=== PATIENT | male | born 1960 | race Caucasian/White ===

== ENCOUNTER 2016-07-16 10:38 | Observation (INO) | payer OTHER | END 2016-07-19 10:55 | disposition other institution (70) | LOC: ER 10:38 → MS 12:48 | PROVIDERS: ADMIT Family Medicine | DX: L03.116 Cellulitis of left lower limb (principal); M86.8X6 Other osteomyelitis, lower leg; S90.822A Blister (nonthermal), left foot, initial encounter; T75.4XXS Electrocution, sequela; E11.9 Type 2 diabetes mellitus without complications; F32.9 Major depressive disorder, single episode, unspecified; D64.9 Anemia, unspecified; R63.4 Abnormal weight loss; I73.9 Peripheral vascular disease, unspecified; Z90.49 Acquired absence of other specified parts of digestive tract; Z98.890 Other specified postprocedural states; Z79.899 Other long term (current) drug therapy; Z79.84 Long term (current) use of oral hypoglycemic drugs; Z68.22 Body mass index [BMI] 22.0-22.9, adult; Z88.2 Allergy status to sulfonamides | CPT/HCPCS: 36415; 71250; 73630; 80048; 80053; 80061; 80202; 82962; 83036; 83605; 85025; 85651; 87040; 96365; 96366; 96367; 96372; 96375; 96376; 99070; 99284-25; G0378; J1170; J3370; J7050 ==

== ENCOUNTER 2016-07-16 10:38 | Inpatient (IN) | payer OTHER ==
[~2016-07-16] VITALS: Ht 182.9 cm; Wt 73.0 kg
[2016-07-16 11:04] LABS: BASO % 0.1 % (0.2-1.2); GRAN # 10.9 10_X3_uL (1.8-5.4); GRAN % 86.9 % (34.0-67.9); HEMATOCRIT 40.7 % (40-51); HEMOGLOBIN 13.8 g/dL (13.7-17.5); LYMPH # 0.8 10_X3_uL (1.3-3.6); MEAN CORPUSCULAR HEMOGLOBIN 29.1 pg (27.0-33.0); MEAN CORPUSCULAR HGB CONC 33.9 g/dL (32.0-36.0); MEAN CORPUSCULAR VOLUME 85.7 fL (79-92); MEAN PLATELET VOLUME 10.1 fl (7.5-11.5); MONO # 0.9 10_X3_uL (0.3-0.8); PLATELET COUNT 172 x10_3/uL (163-337); RED BLOOD COUNT 4.75 x10_6/uL (4.6-6.1); RED CELL DISTRIBUTION WIDTH 13.2 % (11.6-14.4); WHITE BLOOD COUNT 12.6 x10_3/uL (4.2-9.1)
[2016-07-16 11:14] LABS: CALCIUM 8.5 mg/dL (8.7-10.7); CARBON DIOXIDE 26 mmol/L (21-32); CREATININE 1.2 mg/dL (0.6-1.3); GLUCOSE,RANDOM 233 mg/dL (70-99); POTASSIUM 4.4 mmol/L (3.5-5.1); SODIUM 134 mmol/L (136-145)
[2016-07-16 11:18] LABS: BLOOD UREA NITROGEN 21 mg/dL (7-18)
[2016-07-16 12:37] LABS: ERYTHROCYTE SEDIMENTATION RATE 8 mm/hr (0-10)
[2016-07-17 07:09] LABS: AHDL CHOLESTEROL 23 mg/dL (>40); ALBUMIN 3.7 gm/dL (3.4-5.0); ALKALINE PHOSPHATASE 118 U/L (50-136); ALT/SGPT 12 U/L (7.53-40.17); AST/SGOT 11 U/L (6.66-35.34); BILIRUBIN,TOTAL 0.69 mg/dL (0.0-1.0); BLOOD UREA NITROGEN 16 mg/dL (7-18); CALCIUM 8.6 mg/dL (8.7-10.7); CARBON DIOXIDE 29 mmol/L (21-32); CHOLESTEROL 117 mg/dL (0-200); CREATININE 1.1 mg/dL (0.6-1.3); GLUCOSE,RANDOM 127 mg/dL (70-99); LDL CHOLESTEROL 56 mg/dL (0-99); POTASSIUM 4.7 mmol/L (3.5-5.1); SODIUM 141 mmol/L (136-145); TOTAL PROTEIN 6.4 gm/dL (6.4-8.2); TRIGLYCERIDES 143 mg/dL (30-200)
[2016-07-18 06:57] LABS: HEMATOCRIT 38.4 % (40-51); MEAN CORPUSCULAR HEMOGLOBIN 28.9 pg (27.0-33.0); MEAN CORPUSCULAR HGB CONC 33.9 g/dL (32.0-36.0); MEAN CORPUSCULAR VOLUME 85.3 fL (79-92); MEAN PLATELET VOLUME 10.3 fl (7.5-11.5); RED BLOOD COUNT 4.5 x10_6/uL (4.6-6.1); RED CELL DISTRIBUTION WIDTH 12.6 % (11.6-14.4); WHITE BLOOD COUNT 7.7 x10_3/uL (4.2-9.1)
[2016-07-18 07:11] LABS: BLOOD UREA NITROGEN 16 mg/dL (7-18); CALCIUM 8.6 mg/dL (8.7-10.7); CARBON DIOXIDE 26 mmol/L (21-32); CREATININE 0.9 mg/dL (0.6-1.3); GLUCOSE,RANDOM 120 mg/dL (70-99); POTASSIUM 4.4 mmol/L (3.5-5.1); SODIUM 142 mmol/L (136-145)
[2016-07-19 10:57] LABS: BASO % 0.4 % (0.2-1.2); EOS # 0.1 10_X3_uL (0.0-0.5); EOS % 1.6 % (0.8-7.0); GRAN # 3.8 10_X3_uL (1.8-5.4); GRAN % 66.3 % (34.0-67.9); HEMATOCRIT 39.6 % (40-51); HEMOGLOBIN 13.4 g/dL (13.7-17.5); LYMPH # 1.1 10_X3_uL (1.3-3.6); MEAN CORPUSCULAR HGB CONC 33.8 g/dL (32.0-36.0); MEAN CORPUSCULAR VOLUME 85.7 fL (79-92); MEAN PLATELET VOLUME 10.4 fl (7.5-11.5); MONO # 0.7 10_X3_uL (0.3-0.8); MONO % 11.7 % (5.3-12.2); PLATELET COUNT 237 x10_3/uL (163-337); RED BLOOD COUNT 4.62 x10_6/uL (4.6-6.1); RED CELL DISTRIBUTION WIDTH 12.6 % (11.6-14.4); WHITE BLOOD COUNT 5.7 x10_3/uL (4.2-9.1)
[2016-07-19 11:13] LABS: ALBUMIN 3.3 gm/dL (3.4-5.0); ALKALINE PHOSPHATASE 242 U/L (50-136); ALT/SGPT 27 U/L (7.53-40.17); AST/SGOT 22 U/L (6.66-35.34); BILIRUBIN,TOTAL 0.53 mg/dL (0.0-1.0); BLOOD UREA NITROGEN 19 mg/dL (7-18); CALCIUM 8.9 mg/dL (8.7-10.7); CARBON DIOXIDE 28 mmol/L (21-32); CREATININE 0.9 mg/dL (0.6-1.3); GLUCOSE,RANDOM 155 mg/dL (70-99); POTASSIUM 4.1 mmol/L (3.5-5.1); SODIUM 142 mmol/L (136-145); TOTAL PROTEIN 6.4 gm/dL (6.4-8.2)
[2016-07-20 06:41] LABS: HEMATOCRIT 39.1 % (40-51); HEMOGLOBIN 13.2 g/dL (13.7-17.5); MEAN CORPUSCULAR HEMOGLOBIN 28.9 pg (27.0-33.0); MEAN CORPUSCULAR HGB CONC 33.8 g/dL (32.0-36.0); MEAN CORPUSCULAR VOLUME 85.6 fL (79-92); MEAN PLATELET VOLUME 10.1 fl (7.5-11.5); RED BLOOD COUNT 4.57 x10_6/uL (4.6-6.1); RED CELL DISTRIBUTION WIDTH 12.5 % (11.6-14.4); WHITE BLOOD COUNT 6.7 x10_3/uL (4.2-9.1)
[2016-07-20 07:02] LABS: BLOOD UREA NITROGEN 18 mg/dL (7-18); CALCIUM 8.7 mg/dL (8.7-10.7); CARBON DIOXIDE 28 mmol/L (21-32); CREATININE 0.9 mg/dL (0.6-1.3); GLUCOSE,RANDOM 136 mg/dL (70-99); POTASSIUM 4.3 mmol/L (3.5-5.1); SERUM IRON 32 ug/dl (65-175); SODIUM 141 mmol/L (136-145); UIBC 168 ug/dL (135-370)
[2016-07-20 07:51] LABS: FOLATE 11.2 ng/mL (3.17-24.25)
== END 2016-07-20 12:00 | disposition home or self-care (01) | DRG 603 ==
LOC: ER 10:38 → MS 12:48 → UNDODEPER 07-19 13:32 → MS 07-20 12:00
PROVIDERS: Internal Medicine; ADMIT Family Medicine
DX: L03.116 Cellulitis of left lower limb (principal); M86.8X6 Other osteomyelitis, lower leg; S90.822A Blister (nonthermal), left foot, initial encounter; T75.4XXS Electrocution, sequela; E11.9 Type 2 diabetes mellitus without complications; Z90.49 Acquired absence of other specified parts of digestive tract; Z98.890 Other specified postprocedural states; Z79.899 Other long term (current) drug therapy; Z79.84 Long term (current) use of oral hypoglycemic drugs; F32.9 Major depressive disorder, single episode, unspecified; D64.9 Anemia, unspecified; R63.4 Abnormal weight loss; Z68.22 Body mass index [BMI] 22.0-22.9, adult; Z88.2 Allergy status to sulfonamides; I73.9 Peripheral vascular disease, unspecified
CPT/HCPCS: 36415; 71250; 73630; 78315; 80048; 80053; 80061; 80202; 82607; 82746; 82962; 83036; 83540; 83550; 83605; 85025; 85651; 87040; 93971; 96365; 96366; 96375; 96376; 99070; 99284-25; A9503; G0328-QW; J1170; J3370; J7050

== ENCOUNTER → 2016-08-18 | Day surgery (SDC) | payer OTHER ==
[~2016-08-18] VITALS: Ht 182.9 cm; Wt 74.8 kg
== END ==
LOC: OPS 09:19
PROC: 0DB48ZX Excision of Esophagogastric Junction, Via Natural or Artificial Opening Endoscopic, Diagnostic (ICD-10-PCS; principal; 2016-08-18)
PROC: 0DB68ZX Excision of Stomach, Via Natural or Artificial Opening Endoscopic, Diagnostic (ICD-10-PCS; 2016-08-18)
PROC: 0DJD8ZZ Inspection of Lower Intestinal Tract, Via Natural or Artificial Opening Endoscopic (ICD-10-PCS; 2016-08-18)
DX: K29.50 Unspecified chronic gastritis without bleeding (principal); R11.0 Nausea; K21.9 Gastro-esophageal reflux disease without esophagitis; R63.4 Abnormal weight loss; Z68.22 Body mass index [BMI] 22.0-22.9, adult; J44.9 Chronic obstructive pulmonary disease, unspecified; Z87.891 Personal history of nicotine dependence; E11.9 Type 2 diabetes mellitus without complications; E07.9 Disorder of thyroid, unspecified; M19.90 Unspecified osteoarthritis, unspecified site; F32.9 Major depressive disorder, single episode, unspecified; Z79.899 Other long term (current) drug therapy; Z79.891 Long term (current) use of opiate analgesic; Z79.84 Long term (current) use of oral hypoglycemic drugs; Z88.2 Allergy status to sulfonamides; Z88.8 Allergy status to other drugs, medicaments and biological substances
CPT/HCPCS: 43239; 45378; 82962; 94664; 99070; J2704